=== PATIENT | male | born 1995 | race Two or more races ===

== ENCOUNTER 2019-07-05 06:14 | Day surgery (SDC) | payer OTHER ==
[2019-07-05] VITALS (11 sets, daily range): BP systolic 117–140; BP diastolic 55–81
[~2019-07-05] VITALS: Ht 167.6 cm; Wt 95.3 kg
[~2019-07-05 06:14] MED LIST: TYLENOL325 M1 PO; ceFAZolin 1gm IVPB IVPB ONE; celeBREX 200mg Cap **SURGERY PATIENTS ONLY ORAL ONE; oxyCONTIN 20mg tab ORAL ONE
--- NOTE | 2019-07-05 07:43 | Operative Note - PDOC ---
Operative Note Operative Note Pre-op Diagnosis: right shoulder rc tear Procedure: see op report Post-op Diagnosis: same as pre-op plus Operative Findings: consistent w/pre-op dx studies Anesthesia: MAC Specimen: none Complications: none Condition: stable Estimated Blood Loss: none Implant(s) used?: No Bello Ahmadi MD Jul 05, 2019 07:43
--- NOTE | 2019-07-05 07:43 | Pre-Procedure Note/Attestation ---
Pre-Procedure Note/Attestation Complete Prior to Procedure Planned Procedure: right Procedure Narrative: shoulder diagnostic arthroscopy, sad, possible rc repair Indications for Procedure Pre-Operative Diagnosis: right shoulder rc tear Attestation I attest that I discussed the nature of the procedure; its benefits; risks and complications; and alternatives (and the risks and benefits of such alternatives ), prior to the procedure, with the patient (or the patient's legal volunteer patient representative). I attest that, if there was a reasonable possibility of needing a blood transfusion, the patient (or the patient's legal volunteer patient representative) was given the [facility] standardized written summary, pursuant to the [place] Blood Safety Act ([place] Health and Safety Code # 1645, as amended). I attest that I re-evaluated the patient just prior to the surgery and that there has been no change in the patient's H&P, except as documented below: Bello Ahmadi MD Jul 05, 2019 07:43
[2019-07-05] MEDS ORDERED: HYDROmorphone 1mg/ml Carpuject SUBQ PRN (07:45)
[2019-07-05] MEDS ORDERED: D5 1/2NS 1,000 ML IV SCH (07:45)
[2019-07-05] MEDS ORDERED: HYDROcodone/Acetamin 5/325 tab ORAL PRN ×2 (07:45→08:15)
[2019-07-05] MEDS ORDERED: Tylenol #3 tab (300mg/30mg) ORAL PRN (07:45)
[2019-07-05] MEDS ORDERED: LR 1000ml 1,000 ML IVLG SCH (08:03)
--- NOTE | 2019-07-05 08:05 | Anethesia Preoperative Eval ---
Anesthesia Pre-op PMH/ROS General Date of Evaluation: Jul 05, 2019 Time of Evaluation: 08:44 Anesthesiologist: Daniel ASA Score: ASA 1 Mallampati Score Class I : Soft palate, uvula, fauces, pillars visible Class II: Soft palate, uvula, fauces visible Class III: Soft palate, base of uvula visible Class IV: Only hard plate visible Mallampati Classification: Class II Surgeon: Galdino Diagnosis: R Shoulder Pain Surgical Procedure: R Shoulder Arthroscopy Anesthesia History: none Family History: no anesthesia problems Allergies: Coded Allergies: No Known Allergies (Unverified , 07/03/19) Medications: see eMAR Patient NPO?: Yes Past Medical History Other: obesity - BMI 34 Anesthesia Pre-op Phys. Exam Physician Exam Last Vital Signs Date Time Temp Pulse Resp B/P (MAP) Pulse Ox O2 Delivery O2 Flow Rate FiO2 07/05/19 07:04 Room Air 07/05/19 06:59 98.2 63 18 128/63 97 Constitutional: NAD Neurologic: CN 2-12 intact Cardiovascular: RRR Respiratory: CTA Gastrointestinal: S/NT/ND Airway Exam Mallampati Score: Class II MO: full ROM: full Teeth: intact Anesthesia Pre-op A/P Risk Assessment & Plan Assessment: ASA 1 Plan: GA, SED, Supraclavicular Block Status Change Before Surgery: No Pre-Antibiotics Dru Grams Ancef IV Given Within 1 Hr of Incision: Yes Time Given: 09:02 Loy Sanchez MD Jul 05, 2019 08:05
[2019-07-05] MEDS ORDERED: HYDROcodone/Acetamin 7.5/325 tab ORAL PRN (08:15)
[2019-07-05] MEDS ORDERED: Midazolam 2mg/2ml Inj IVP PRN (08:15)
[2019-07-05] MEDS ORDERED: Atropine Sulfate 0.4mg/ml inj IVP PRN (08:15)
[2019-07-05] MEDS ORDERED: Metoclopramide 10mg/2ml Inj IVP PRN (08:15)
[2019-07-05] MEDS ORDERED: fentaNYL 100 mcg/2 mL IV PRN (08:15)
[2019-07-05] MEDS ORDERED: DiphenhydrAMINE 50mg/ml Inj IVP PRN (08:15)
[2019-07-05] MEDS ORDERED: Ketorolac 30mg Inj IV PRN ×2 (08:15)
[2019-07-05] MEDS ORDERED: Hydromorphone 0.5mg/0.5ml inj IVP PRN (08:15)
[2019-07-05] MEDS ORDERED: Meperidine 25mg/0.5ml Inj (FOR RIGORS ONLY) IV PRN (08:15)
[2019-07-05] MEDS ORDERED: oxyCODONE HCL/Acetaminophen 5/325mg ORAL PRN (08:15)
[2019-07-05] MEDS ORDERED: LORazepam Inj 2mg/ml 1ml IV PRN (08:15)
[2019-07-05] MEDS ORDERED: Labetalol 5mg/ml 20ml vial IV PRN (08:15)
[2019-07-05] MEDS ORDERED: Duramorph PF 5mg/10ml amp ONE (08:32)
[2019-07-05] MEDS ORDERED: Ketorolac 30mg Inj ONE (08:32)
[2019-07-05] MEDS ORDERED: Kenalog-40 1ml Vial ONE (08:32)
[2019-07-05] MEDS ORDERED: EPINEPHrine 1mg/1ml Amp ONE ×2 (08:33→08:37)
[2019-07-05] MEDS ORDERED: Propofol 200mg/20ml IV ONE (08:37)
[2019-07-05] MEDS ORDERED: Lidocaine 1% MPF 10mg/ml 5ml ONE (08:37)
[2019-07-05] MEDS ORDERED: Dexamethasone 4mg/ml vial ONE ×2 (08:37→08:38)
[2019-07-05] MEDS ORDERED: Ropivacaine 5mg/ml Vial 20ml INJ ONE (08:37)
[2019-07-05] MEDS ORDERED: NS Irrig 4000ml IRRIG ONE ×2 (08:57→09:27)
--- NOTE | 2019-07-05 09:36 | Immediate Post-Op Evaluation ---
Immediate Post-Op Evalulation Immediate Post-Op Evalulation Procedure: Right Shoulder Arthroscopy Date of Evaluation: Jul 05, 2019 Time of Evaluation: 10:14 IV Fluids: 1000 LR Blood Products: 0 Estimated Blood Loss: 10 Urinary Output: 0 Blood Pressure Systolic: 139 Blood Pressure Diastolic: 81 Pulse Rate: 82 Respiratory Rate: 16 O2 Sat by Pulse Oximetry: 100 Temperature (Fahrenheit): 97.6 Pain Score (1-10): 2 Nausea: No Vomiting: No Complications 0 Patient Status: awake, reacts, patent, extubated, none Hydration Status: adequate Dru Grams Ancef IV Given Within 1 Hr of Incision: Yes Time Given: 09:02 Loy Sanchez MD Jul 05, 2019 09:36
--- NOTE | 2019-07-05 09:37 | 48 Hour Post Anesthesia Eval ---
Post Anesthesia Evaluation Procedure: Right Shoulder Arthroscopy Date of Evaluation: Jul 05, 2019 Time of Evaluation: 12:24 Blood Pressure Systolic: 128 0: 78 Pulse Rate: 74 Respiratory Rate: 18 Temperature (Fahrenheit): 98 O2 Sat by Pulse Oximetry: 97 Airway: patent Nausea: No Vomiting: No Pain Intensity: 2 Hydration Status: adequate Cardiopulmonary Status: Stable Mental Status/LOC: patient returned to baseline Follow-up Care/Observations: 0 Post-Anesthesia Complications: 0 Follow-up care needed: ready to discharge Loy Sanchez MD Jul 05, 2019 09:37
[2019-07-05] MEDS ORDERED: Duramorph PF 5mg/10ml amp IT ONE (09:40)
--- NOTE | 2019-07-05 13:45 | Diagnostic Imaging Report ---
INDICATION: Pain, intraoperative TECHNIQUE: Intraoperative imaging Fluoroscopy time: 2.8 seconds Total dose: 0.19686 mGym2 Total number of images: 2 COMPARISON: None FINDINGS: No pre-removal images are available. Available images document a complete absence of surgical hardware within the left wrist IMPRESSION: Intraoperative imaging, as described
--- NOTE | 2019-07-05 13:45 | Diagnostic Imaging Report ---
INDICATION: Pain, intraoperative TECHNIQUE: Intraoperative imaging Fluoroscopy time: 2.8 seconds Total dose: 0.84630 mGym2 Total number of images: 2 COMPARISON: None FINDINGS: No pre-removal images are available. Available images document a complete absence of surgical hardware within the left wrist IMPRESSION: Intraoperative imaging, as described
--- NOTE | 2019-07-05 16:45 | Operative Note - Dictated ---
DATE OF OPERATION: 07/05/2019 PREOPERATIVE DIAGNOSES: 1. Right shoulder partial rotator cuff tear/rotator cuff tendinosis. 2. Right shoulder impingement syndrome/bursitis. POSTOPERATIVE DIAGNOSES: 1. Right shoulder partial rotator cuff tear/rotator cuff tendinosis. 2. Right shoulder impingement syndrome/bursitis. PROCEDURE: 1. Right shoulder diagnostic arthroscopy. 2. Right shoulder subacromial decompression bursectomy. SURGEON: Bello Ahmadi M.D. ANESTHESIA: Interscalene with general. INDICATION FOR PROCEDURE: Patient is a pleasant gentleman, who has had progressive right shoulder pain. He had MRI, which showed a partial rotator cuff tear. He had a clinical evidence of impingement syndrome. Failed conservative treatment, elected to undergo right shoulder diagnostic arthroscopy possible repair versus debridement of rotator cuff with concurrence of subacromial decompression bursectomy. Risks, limitations, expectations, and complications of procedure were discussed in detail. All questions addressed. DESCRIPTION OF PROCEDURE: After informed consent was obtained, patient was brought to operating room. Patient was placed under interscalene general anesthesia. Patient was then carefully placed in beach chair position. Right shoulder was prepped and draped in a sterile manner. Time-out was performed. Inferolateral stab incision was then made. Trocar was introduced into the glenohumeral joint. Systematic tour of the shoulder was performed. No chondral damage. The anterior labrum appeared to be intact along with the subscap. The superior labrum, biceps tendon was intact. The articular side of the rotator cuff was intact. The camera was then repositioned in the subacromial space. There was hypertrophic bursal tissue making visualization somewhat difficult. Anterior lateral aspect of the acromion was identified. Acromioplasty was started from lateral to medial and completed from posterior to anterior. Bursectomy was completed posteriorly. Once this was done, there was a bursal sided partial rotator cuff tear involving the infraspinatus, which was debrided. Once that was done, the instruments were removed. Portal sites were closed with 3-0 Monocryl sutures. Steri-Strips and a sterile dressing were applied. ESTIMATED BLOOD LOSS: None. COMPLICATIONS: None. SPECIMENS: None. IMPLANTS: None. Bello Ahmadi M.D. DR: SERA JOB#: [id number] CC:
== END 2019-07-05 12:00 | disposition home or self-care (01) ==
LOC: SUR 06:14
DX: M75.111 Incomplete rotator cuff tear or rupture of right shoulder, not specified as traumatic (principal); M77.9 Enthesopathy, unspecified; M75.41 Impingement syndrome of right shoulder; E66.9 Obesity, unspecified; Z68.33 Body mass index [BMI] 33.0-33.9, adult; M71.9 Bursopathy, unspecified
CPT/HCPCS: 29822; 73100; 76000; J0171; J0690; J1100; J1885; J2250; J2405; J2704; J2795; J3301; 94003; 94150